=== PATIENT | female | born 1950 | race Caucasian/White ===

== ENCOUNTER → 2016-10-26 | Outpatient (CLI) | payer OTHER ==
[~2016-10-26] MED LIST: BOSW1POW4 PO; COQ10 PO; GLUCTAB7 PO; MULT-506 PO
--- NOTE | 2016-10-26 15:58 | DIAGNOSTIC IMAGING REPORT ---
PELVIS WITHOUT CONTRAST (MRI) CLINICAL HISTORY: Elevated ESR. Elevated C-reactive protein. Increased SI joint activity on bone scan COMPARISON STUDY: Bone scan dated 06/30/2016, conventional radiographic study dated 06/01/2016 FINDINGS: There are no areas of marrow replacement to indicate metastatic disease. There are degenerative changes present within the lower lumbar spine. There is very minimal marrow edema involving the left sacral wing. The findings are suspicious for a stress/insufficiency fracture. There are foci of decreased T1 and T2 signal marginating the SI joints, left greater than right., likely on a degenerative basis. This is most pronounced on the iliac side of the joint. 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 There is no significant T2 edema within the SI joints. IMPRESSION: 1. 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 2. Subtle marrow edema involving the left sacral wing. The findings are suspicious for a stress/insufficiency fracture. Electronically signed by: Vincenzo Portillo M.D. 10/26/2016 3:56 PM
== END | disposition home or self-care (01) ==
LOC: C.MRI 13:59
PROVIDERS: ATTEND Internal Medicine Rheumatology
DX: M46.1 Sacroiliitis, not elsewhere classified (principal); R70.0 Elevated erythrocyte sedimentation rate; R79.82 Elevated C-reactive protein (CRP)

== ENCOUNTER → 2016-11-09 | Outpatient (CLI) | payer OTHER ==
[2016-11-09 10:51] LABS: CHOLESTEROL/HDL RATIO 4.4
[2016-11-09 11:30] LABS: ESTIMATED AVERAGE GLUCOSE 120 mg/dl; HA1C FLAG Normal (Normal)
== END | disposition home or self-care (01) ==
LOC: C.LAB1850 09:35
PROVIDERS: ATTEND Internal Medicine
DX: E66.01 Morbid (severe) obesity due to excess calories (principal); Z13.220 Encounter for screening for lipoid disorders

== ENCOUNTER → 2017-01-17 | Outpatient (CLI) | payer OTHER ==
--- NOTE | 2017-01-17 09:13 | DIAGNOSTIC IMAGING REPORT ---
LEFT FOOT MIN 3 VIEWS CLINICAL HISTORY: Left foot pain COMPARISON: None. DISCUSSION: There is plantar calcaneal spurring and Achilles insertional spurring. There is a calcification of the posterior plantar fascia. There are no acute fractures. There are no erosive or destructive changes. IMPRESSION: 1. No acute fractures 2. Calcaneal spurring. Calcification of the posterior plantar fascia. Electronically signed by: Vincenzo Portillo M.D. 01/17/2017 9:11 AM Dictated Date/Time: 01/17/2017 9:10 AM
== END | disposition home or self-care (01) ==
LOC: C.RDSM 15:41
PROVIDERS: ATTEND Physician Assistant
DX: M79.672 Pain in left foot (principal)

== ENCOUNTER → 2017-02-28 | Outpatient (CLI) | payer OTHER ==
[2017-02-28 09:49] LABS: CALCIUM 9.2 mg/dl (8.5-10.1)
[2017-02-28 09:50] LABS: BLOOD UREA NITROGEN 11 mg/dl (7-18); BUN/CREATININE RATIO 15.9 (10-20); C-REACTIVE PROTEIN 2.65 mg/dl (0-0.29); CARBON DIOXIDE 30 mmol/L (21-32); CHLORIDE 103 mmol/L (98-107); CHOLESTEROL 173 mg/dl (0-200); GLUCOSE 109 mg/dl (70-99); POTASSIUM 3.8 mmol/L (3.5-5.1); SODIUM 142 mmol/L (136-145); TRIGLYCERIDES 157 mg/dl (0-150); VERY LOW DENSITY LIPOPROT CALC 31 mg/dl
[2017-02-28 09:55] LABS: CHOLESTEROL/HDL RATIO 4.6; HDL CHOLESTEROL 38 mg/dl; LDL CHOLESTEROL CALCULATED 104 mg/dl
[2017-02-28 10:09] LABS: ESTIMATED AVERAGE GLUCOSE 128 mg/dl; HA1C FLAG Normal (Normal)
--- NOTE | 2017-03-30 06:21 | CODING QUERY MEDICAL NECESSITY ---
SUPPORTING DIAGNOSIS NEEDED Dr. Au, A supporting diagnosis is required for the test/procedure performed on this patient in order for us to be reimbursed by the patient's insurance. Please provide a supporting diagnosis for the following test/procedure listed below next to the test name along with your signature. *If there is no additional diagnosis for this patient that would support the following test/procedure please document that below next to the test/procedure. Test(s)/Procedure(s) that require a supporting diagnosis: * [id number] GLYCATED HEMOGLOBIN DIAGNOSIS: DATE OF SERVICE: 02/28/17 Provider Signature: Date: Thank you Frank Maciel [facility] Information Management Once completed, please kindly fax back to [phone] For questions please call [phone]
== END | disposition home or self-care (01) ==
LOC: C.LAB1850 07:35
PROVIDERS: ATTEND Internal Medicine
DX: R73.03 Prediabetes (principal); R79.82 Elevated C-reactive protein (CRP); R70.0 Elevated erythrocyte sedimentation rate; E78.5 Hyperlipidemia, unspecified; E55.9 Vitamin D deficiency, unspecified; Z83.3 Family history of diabetes mellitus

== ENCOUNTER → 2017-03-28 | Outpatient (CLI) | payer OTHER ==
--- NOTE | 2017-03-28 09:09 | DIAGNOSTIC IMAGING REPORT ---
RIGHT TIBIA/FIBULA 2 VIEWS ROUTINE CLINICAL HISTORY: M25.569 Knee [id number] Right pain COMPARISON: 10/19/2016 DISCUSSION: Total right knee arthroplasty. No acute abnormality of the tibia or fibula. Moderate nonspecific pretibial soft tissue edema. No abnormal depressed reaction. The IMPRESSION: Mild soft tissue edema. No acute process. Electronically signed by: Anup Ferguson M.D. 03/28/2017 9:08 AM Dictated Date/Time: 03/28/2017 9:07 AM
--- NOTE | 2017-03-28 09:12 | DIAGNOSTIC IMAGING REPORT ---
RIGHT KNEE 3 VIEWS CLINICAL HISTORY: Right knee pain. No recent trauma. COMPARISON: Right knee radiograph October 19, 2016. FINDINGS: Alignment of the total right knee arthroplasty is anatomic. Hardware within the medial metadiaphysis of the right tibia is unchanged. There is no periprosthetic fracture or lucency. No suspicious osseous lesion is present. There is no definite joint effusion. IMPRESSION: 1. Stable postoperative findings following total right knee arthroplasty. 2. No periprosthetic fracture or lucency. Electronically signed by: Eber Frias M.D. 03/28/2017 9:11 AM Dictated Date/Time: 03/28/2017 9:09 AM
== END | disposition home or self-care (01) ==
LOC: C.RAD1850 08:38
PROVIDERS: ATTEND Physician Assistant
DX: M25.569 Pain in unspecified knee (principal)

== ENCOUNTER → 2017-08-07 | Outpatient (CLI) | payer OTHER ==
[2017-08-07 09:45] LABS: BASO % 0.6 %; BASO ABS # 0.04 K/uL (0-0.2); COMPLETE YES; EOS % 2.7 %; HEMATOCRIT 43.7 % (37-47); IG% 0.1 %; LYMPH ABS # 1.35 K/uL (1.2-3.4); MEAN CELL VOLUME 92.6 fL (80-100); MEAN CORPUSCULAR HEMOGLOBIN 31.1 pg (25-34); MEAN CORPUSCULAR HGB CONC 33.6 g/dl (32-36); MEAN PLATELET VOLUME 10.7 fL (7.4-10.4); MONO % 10.4 %; NEUT % 66.2 %; PLATELET COUNT 210 K/uL (130-400); RED BLOOD COUNT 4.72 M/uL (4.2-5.4); WHITE BLOOD COUNT 6.74 K/uL (4.8-10.8)
[2017-08-07 10:06] LABS: ALT/SGPT 25 U/L (12-78); AST/SGOT 12 U/L (15-37); BLOOD UREA NITROGEN 22 mg/dl (7-18); BUN/CREATININE RATIO 30.5 (10-20); CALCIUM 9.1 mg/dl (8.5-10.1); CARBON DIOXIDE 27 mmol/L (21-32); CHLORIDE 107 mmol/L (98-107); CREATININE 0.72 mg/dl (0.60-1.20); GLUCOSE 108 mg/dl (70-99); POTASSIUM 3.9 mmol/L (3.5-5.1); SODIUM 142 mmol/L (136-145)
[2017-08-07 10:11] LABS: ESTIMATED AVERAGE GLUCOSE 108 mg/dl; HA1C FLAG Normal (Normal)
[2017-08-07 10:17] LABS: ALB/GLOB RATIO 0.9 (0.9-2); ALKALINE PHOSPHATASE 62 U/L (45-117); CHOLESTEROL 197 mg/dl (0-200); CHOLESTEROL/HDL RATIO 4.3; HDL CHOLESTEROL 46 mg/dl; LDL CHOLESTEROL CALCULATED 133 mg/dl; TRIGLYCERIDES 92 mg/dl (0-150); VERY LOW DENSITY LIPOPROT CALC 18 mg/dl
== END | disposition home or self-care (01) ==
LOC: C.LAB1850 07:03
PROVIDERS: ATTEND Neuromusculoskeletal Medicine & OMM
DX: Z00.00 Encounter for general adult medical examination without abnormal findings (principal); E66.01 Morbid (severe) obesity due to excess calories; N95.1 Menopausal and female climacteric states; Z68.42 Body mass index [BMI] 45.0-49.9, adult

== ENCOUNTER → 2017-09-07 | Outpatient (CLI) | payer OTHER ==
--- NOTE | 2017-09-07 16:47 | DIAGNOSTIC IMAGING REPORT ---
L TOE(S) MIN 2 VIEWS HISTORY: 66 years-old Female S99.922A Injury of toe on left foot, initial encounterLeft acute left foot and toe pain status post injury COMPARISON: Left foot radiographs 01/17/2017 TECHNIQUE: 3 views of the left toes FINDINGS: Evaluation of the toes is somewhat limited secondary to mild flexion of the interphalangeal joints. Mild to moderate interphalangeal and metatarsal phalangeal degenerative changes are present. Moderate degenerative changes about the midfoot and first MTP joint are also present. There is marginal spurring involving the hallux sesamoid articulations with the first metatarsal head. Type II accessory navicular and os peroneum are noted. No acute fracture or dislocation is identified. No stress fracture. No opaque foreign body. Mild forefoot soft tissue swelling is noted. IMPRESSION: 1. Mild forefoot soft tissue swelling without acute fracture or dislocation. 2. Multifocal degenerative changes about the forefoot and midfoot as above The above report was generated using voice recognition software. It may contain grammatical, syntax or spelling errors. Electronically signed by: Wai Patrick M.D. 09/07/2017 4:45 PM Dictated Date/Time: 09/07/2017 4:43 PM
== END | disposition home or self-care (01) ==
LOC: C.RAD1850 16:28
PROVIDERS: ATTEND Neuromusculoskeletal Medicine & OMM
DX: M19.072 Primary osteoarthritis, left ankle and foot (principal); S99.922A Unspecified injury of left foot, initial encounter; X58.XXXA Exposure to other specified factors, initial encounter

== ENCOUNTER → 2017-09-08 | Outpatient (CLI) | payer OTHER ==
--- NOTE | 2017-09-08 11:59 | DIAGNOSTIC IMAGING REPORT ---
R VENOUS DOPPLER UPR EXT UNIL HISTORY: 66 years-old Female M25.511 Acute pain of right [id number] Pain with raising of acute right shoulder pain with recent fall COMPARISON: Right shoulder radiographs 08/22/2017 TECHNIQUE: Multiple real-time sonographic images of the right upper extremity deep venous structures were obtained assessing grayscale appearance, color and spectral flow FINDINGS: No there is normal flow, compressibility, augmentation and phasicity within the right upper extremity deep venous structures. IMPRESSION: No sonographic evidence of deep venous thrombosis. The above report was generated using voice recognition software. It may contain grammatical, syntax or spelling errors. Electronically signed by: Wai Patrick M.D. 09/08/2017 11:58 AM Dictated Date/Time: 09/08/2017 11:57 AM
== END | disposition home or self-care (01) ==
LOC: C.ULTRBC 10:33
PROVIDERS: ATTEND Neuromusculoskeletal Medicine & OMM
DX: M25.511 Pain in right shoulder (principal); M79.601 Pain in right arm

== ENCOUNTER → 2017-10-11 | Outpatient (CLI) | payer OTHER ==
[~2017-10-11] MED LIST changes: +ACET-1256 PO; +COEN100C7 PO; +IBUP-1050 PO; +KETO10TA PO; +OMEG10007 PO; +OXYC-57 PO; +[UNRECOGNIZED DRUG - OTHER] OPB
[2017-10-11 18:13] LABS: BLOOD UREA NITROGEN 21 mg/dl (7-18); CREATININE 0.67 mg/dl (0.60-1.20)
== END | disposition home or self-care (01) ==
LOC: C.LAB1850 17:08
PROVIDERS: ATTEND Orthopaedic Surgery
DX: M75.121 Complete rotator cuff tear or rupture of right shoulder, not specified as traumatic (principal)

== ENCOUNTER 2017-12-01 04:53 | Day surgery (SDC) | payer OTHER ==
[2017-11-16 13:26] VITALS: BMI 44.0
--- NOTE | 2017-11-16 13:56 | PAT Medication Instructions ---
Service Date Nov 16, 2017. Current Home Medication List Acetaminophen (Tylenol), 1,000 MG PO PRN Boswellia Marquise Extract (Bul (Boswellia Marquise Extract), 1 TAB PO QAM Coenzyme Q10 (Ubidecarenone) (Coq10), 100 MG PO QAM Fish Oil ([place]-3), 1 CAP PO QAM Fczoszeuwsw-Hvdfyppdvba-Ksp C- (Glucosamine Chondroitin), 1 TAB PO QAM Ibuprofen (Advil), 800 MG PO Q6H PRN for PRN Multivitamin (Multivitamin), 1 TAB PO QAM [Genteel Drops], 1 DROP OPB PRN Medication Instructions For Your Scheduled Surgery - Check with surgeon for instructions: Ibuprofen (Advil), 800 MG PO Q6H PRN for PRN - Hold the following medications 2 weeks prior to surgery: Boswellia Marquise Extract (Bul (Boswellia Marquise Extract), 1 TAB PO QAM Coenzyme Q10 (Ubidecarenone) (Coq10), 100 MG PO QAM Fish Oil ([place]-3), 1 CAP PO QAM Ohygvrpnxjp-Pkewpapyvmd-Smj C- (Glucosamine Chondroitin), 1 TAB PO QAM - Hold the following medications the morning of surgery: Multivitamin (Multivitamin), 1 TAB PO QAM - Take the following medications the morning of surgery with a sip of water: [Genteel Drops], 1 DROP OPB PRN Acetaminophen (Tylenol), 1,000 MG PO PRN (okay to take up 4 hours prior to surgery if needed) - Take the following medications as scheduled the night before surgery: [Genteel Drops], 1 DROP OPB PRN (if needed) Acetaminophen (Tylenol), 1,000 MG PO PRN (if needed) If you have any questions please call us at [phone] or [phone] or [phone]
--- NOTE | 2017-11-16 14:32 | DIAGNOSTIC IMAGING REPORT ---
TWO VIEW CHEST CLINICAL HISTORY: Preoperative examination. FINDINGS: PA and lateral chest radiographs are obtained. No prior studies are available for comparison at the time of dictation. The cardiomediastinal silhouette is unremarkable. There is atherosclerotic calcification of the thoracic aorta. There is nonspecific interstitial thickening. Airspace opacities at the left lung base likely represent atelectasis. No pleural effusion is identified. There is no pneumothorax. The skeletal structures are osteopenic. Degenerative change and scoliosis are noted in the thoracic spine. Cholecystectomy clips are seen in the right upper quadrant. 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 This was also seen by abdominal CT on 02/02/2010. IMPRESSION: Left basilar airspace opacities likely represent atelectasis. The lungs are otherwise clear. Electronically signed by: Dirk Bernardo M.D. 11/16/2017 2:31 PM Dictated Date/Time: 11/16/2017 2:30 PM
[2017-11-16 15:09] LABS: BASO % 0.7 %; BASO ABS # 0.05 K/uL (0-0.2); EOS % 2.8 %; HEMATOCRIT 43.8 % (37-47); HEMOGLOBIN 14.7 g/dL (12.0-16.0); IG# 0.01 K/uL (0.00-0.02); LYMPH % 20.1 %; LYMPH ABS # 1.45 K/uL (1.2-3.4); MEAN CELL VOLUME 93.4 fL (80-100); MEAN CORPUSCULAR HEMOGLOBIN 31.3 pg (25-34); MEAN CORPUSCULAR HGB CONC 33.6 g/dl (32-36); MEAN PLATELET VOLUME 10.7 fL (7.4-10.4); MONO % 10.8 %; MONO ABS # 0.78 K/uL (0.11-0.59); NEUT % 65.5 %; NEUT ABS # 4.73 K/uL (1.4-6.5); PLATELET COUNT 231 K/uL (130-400); RED CELL DISTRIBUTION WIDTH CV 14.1 % (11.5-14.5); RED CELL DISTRIBUTION WIDTH SD 47.9 fL (36.4-46.3); WHITE BLOOD COUNT 7.22 K/uL (4.8-10.8)
[2017-11-16 15:16] LABS: CALCIUM 9.9 mg/dl (8.5-10.1); CREATININE 0.62 mg/dl (0.60-1.20); POTASSIUM 3.9 mmol/L (3.5-5.1)
[2017-11-16 15:21] LABS: PTT PATIENT 28.6 SECONDS (21.0-31.0)
--- NOTE | 2017-11-30 09:40 | HISTORY & PHYSICAL EXAMINATION ---
DATE OF ADMISSION: 12/01/2017 CHIEF COMPLAINT: Medium-sized right rotator cuff tear. HISTORY OF PRESENT ILLNESS: Sarah is a pleasant 67-year-old female who slipped and fell at home about 3 months ago. She had significant pain in her right shoulder. She also was noticing weakness. I got a CT arthrogram of her shoulder after she failed conservative treatment and it showed a medium-sized right rotator cuff tear. She elected to proceed with a shoulder arthroscopy. PAST MEDICAL HISTORY: Denies. PAST SURGICAL HISTORY: Significant for cholecystectomy, bilateral total knee arthroplasties. ALLERGIES: PENICILLIN, TETRACYCLINE, CIPRO AND SULFA. MEDICATIONS: Include triamcinolone cream. FAMILY HISTORY: Significant for heart disease, stroke and cancer. SOCIAL HISTORY: She is , rarely drinks and does little activity. REVIEW OF SYSTEMS: She complains mostly of right shoulder pain and weakness. All other pertinent review of systems is negative. PHYSICAL EXAMINATION: GENERAL: She is awake, alert and oriented x3. She is in no apparent distress. She is very pleasant. HEENT: Pupils equal, round and reactive to light. Extraocular motion intact. Oral mucosa is pink and moist. HEART: Regular rate per radial pulse. LUNGS: Mikki symmetrically bilaterally with no audible breath sounds. ABDOMEN: Soft, nontender, nondistended. MUSCULOSKELETAL: Physical examination of the right shoulder showed about 130 degrees of forward elevation, 100 degrees of abduction. She has 4/5 muscle strength with external rotation with a lot of pain. I am unable to do a full can testing because of her pain. She has a negative belly press test. She has a lot of tenderness to palpation in the subacromial space. IMAGING: A CT arthrogram of the shoulder shows a full-thickness tear of the supraspinatus. There is no osteoarthritis. IMPRESSION: Medium-sized right rotator cuff tear. PLAN: We will proceed with a right shoulder arthroscopy to include a medium-sized rotator cuff repair. Postoperatively, she will be placed in an arm sling and discharged to home with oral pain medications.
[~2017-12-01] VITALS: Ht 160 cm; Wt 114.1 kg
[~2017-12-01 04:53] MED LIST changes: +CHECK SCOPOLAMINE PATCH PLACEMENT SCH; -COQ10 PO; -KETO10TA PO; -OXYC-57 PO
[2017-12-01 05:40] VITALS: BP 151/98; PULSE 66; TEMP 36.3; O2SAT 96; Ht 160 cm; Wt 114.1 kg
[2017-12-01] MEDS ORDERED: VANCOMYCIN INJ 1,750 MG in SODIUM CHLORIDE 0.9% 500ML 500 ML IV SCH (06:00)
[2017-12-01] MEDS ORDERED: LACTATED RINGER'S 1000ML 1,000 ML IV SCH (06:00)
[2017-12-01] MEDS ORDERED: FAMOTIDINE 20 MG TAB PO SCH (06:00)
[2017-12-01] MEDS ORDERED: SCOPOLAMINE 1.5 MG TDSY TD SCH (06:00)
[2017-12-01] MEDS ORDERED: LACTATED RINGER'S 1000ML IV SCH (06:00)
[2017-12-01] MEDS ORDERED: ACETAMINOPHEN 500 MG TAB PO SCH (06:00)
[2017-12-01] MEDS ORDERED: ROPIVACAINE 0.5% 5 MG/ML 30 ML VIAL ONE (06:30)
[2017-12-01] MEDS ORDERED: MIDAZOLAM HCL 1 MG/ML 2ML VIAL ONE (06:44)
[2017-12-01] MEDS ORDERED: FENTANYL CITRATE INJ 50 MCG/1 ML 2 ML VIAL ONE (06:45)
[2017-12-01] MEDS ORDERED: SUCCINYLCHOLINE CHLORIDE 20 MG/ML 10 ML VIAL IV ONE (06:49)
[2017-12-01] MEDS ORDERED: GLYCOPYRROLATE INJ 0.2 MG/ML VIAL ONE (06:49)
[2017-12-01] MEDS ORDERED: NEOSTIGMINE METHYLSULFATE 5 MG/5 ML SYR ONE (06:49)
[2017-12-01] MEDS ORDERED: PROPOFOL IV EMULSION 10 MG/ML 20 ML VIAL IV ONE ×2 (06:49→08:52)
[2017-12-01] MEDS ORDERED: ONDANSETRON INJ 2 MG/ML 2 ML VIAL ONE (06:49)
[2017-12-01] MEDS ORDERED: ROCURONIUM BROMIDE 10 MG/ML 5 ML VIAL IV ONE (06:49)
--- NOTE | 2017-12-01 06:52 | History & Physical Bridge Note ---
H&P Re-Evaluation Bridge Note: I have examined the patient, reviewed the History & Physical and in the interval since the performance of the History & Physical I have noted the following changes of clinical significance: No changes noted
[2017-12-01] MEDS ORDERED: BUPIVACAINE/EPINEPHRINE 0.5% MPF 1:200,000 30 ML VIAL ONE (06:56)
[2017-12-01] MEDS ORDERED: EpINEphrine HCL INJ 1 MG/ML 1ML SYRINGE ONE (06:57)
[2017-12-01] MEDS ORDERED: ONDANSETRON INJ 2 MG/ML 2 ML VIAL IV PRN ×2 (07:45→09:00)
[2017-12-01] MEDS ORDERED: EpHEDrine SULFATE INJ 50 MG/ML AMP IV PRN (07:45)
[2017-12-01] MEDS ORDERED: ATROPINE SULFATE 0.1 MG/ML 5ML SYR IV PRN (07:45)
[2017-12-01] MEDS ORDERED: FENTANYL CITRATE INJ 50 MCG/1 ML 2 ML VIAL IV PRN (07:45)
--- NOTE | 2017-12-01 08:45 | [facility] Post Operative Brief Note ---
Immediate Operative Summary Operative Date Dec 01, 2017. Pre-Operative Diagnosis Medium-sized right rotator cuff tear Post-Operative Diagnosis Medium-sized right rotator cuff tear Procedure(s) Performed Right Shoulder Arthroscopy with Medium Rotator Cuff Repair, Bicep tendinesis, Acromioplasty Surgeon Dr Stef Baez Applications Engineer Surgeon(s) Hung Rosenbaum PA-C Estimated Blood Loss 5cc Findings Consistent with Post-Op Diagnosis Specimens None as per surgeon Drains None Anesthesia Type General Regional Complication(s) none Disposition Disposition: Recovery Room / PACU
[2017-12-01] MEDS ORDERED: KETO10TA PO (08:47)
[2017-12-01] MEDS ORDERED: OXYC-57 PO (08:47)
[2017-12-01] MEDS ORDERED: METOCLOPRAMIDE HCL INJ 5 MG/ML 2 ML VIAL ONE (08:49)
[2017-12-01] MEDS ORDERED: SODIUM CHLORIDE 0.9% 1000ML 1,000 ML IV SCH (08:49)
--- NOTE | 2017-12-01 08:49 | Discharge Instructions ---
Discharge Instructions Date of Service Dec 01, 2017. Admission Reason for Admission: Right Shoulder Rotator Cuff Tear Discharge Discharge Diagnosis / Problem: SAME ABOVE Discharge Goals Goal(s): Decrease discomfort, Improve function Activity Recommendations Activity Limitations: as noted below Lifting Limitations: until after follow-up appointment Exercise/Sports Limitations: until after follow-up appointment Shower/Bathe: tomorrow . Instructions / Follow-Up Instructions / Follow-Up MEDICATIONS: * Resume previous medications unless instructed otherwise by your surgeon. * Always take pain medication on a full stomach or with food to avoid upset stomach. * Do not drink alcohol or drive while taking narcotics. * Ibuprofen or Tylenol may be taken if narcotic not needed. SPECIAL CARE INSTRUCTIONS: __ None _X_ Keep extremity elevated and iced x 48 hours; apply ice 20-30 minutes 8-10 times/day. May remove at night. __ Sling __24 hrs/day __ Remove at night _X_ Shoulder Immobilizer (MAY REMOVE AFTER 48 HOURS ONLY TO SHOWER AND FOR THERAPY) _X_ 24 hrs/day __ Remove at night _X_ Dressing __ Maintain until seen in office, may shower with plastic over site _X_ Remove dressings in 24-48 hours and then may shower _X_ Cover incisions with band-aids after showering __ Do not remove steri-strips Call physician if chills or temperature rises above 102 degrees or pain unrelieved by prescribed pain medications at . . Current Hospital Diet Patient's current hospital diet: Discharge Diet Recommended Diet: Regular Diet Fluid Restriction: None Procedures Procedures Performed: Right Shoulder Arthroscopy with Medium Rotator Cuff Repair, Bicep tendinesis, Acromioplasty Pending Studies Studies pending at discharge: no Work Instructions Return To Work: after follow-up Lifting Limitations: NO LIFTING WITH RIGHT ARM Medical Emergencies . Who to Call and When: Medical Emergencies: If at any time you feel your situation is an emergency, please call 911 immediately. . Non-Emergent Contact Non-Emergency issues call your: Primary Care Provider Call Non-Emergent contact if: you have a fever, temperature is above 101.5 . "Provider Documentation" section prepared by Jose Rosenbaum. . VTE Core Measure Inpt VTE Proph given/why not?: Treatment not indicated
[2017-12-01] MEDS ORDERED: OXYCODONE/ACETAMINOPHEN 5-325 TAB PO PRN ×2 (09:00)
--- NOTE | 2017-12-01 09:08 | OPERATIVE REPORT ---
DATE OF OPERATION: 12/01/2017 PREOPERATIVE DIAGNOSIS: Medium sized rotator cuff tear of the right shoulder. POSTOPERATIVE DIAGNOSIS: Same. PROCEDURE: Right shoulder diagnostic arthroscopy with limited debridement, acromioplasty, medium size rotator cuff repair and arthroscopic biceps tenodesis. SURGEON: Dr. Stef Baez. PIGS FEET FINISHER: Hung Rosenbaum PA-C, whose assistance was necessary for positioning the arm and helping with instrumentation and closure. ANESTHESIA: General with a right interscalene nerve block. COMPLICATIONS: None. CONDITION: Stable to PACU. INDICATIONS: Sarah is a pleasant 67-year-old female who presented to my office with complaints of right shoulder pain. CT arthrogram and clinical examination were diagnostic for medium sized rotator cuff tear. After failing conservative treatment, she elected to undergo arthroscopy. DESCRIPTION OF PROCEDURE: On 12/01/2017, she arrived at [facility] for the above procedure. She was seen in the preoperative holding area and the operative extremity was identified and signed. She was given a preoperative antibiotic and a right interscalene nerve block. She was taken back to the operating room, laid on the table in supine position and put under general anesthesia. She was then put into the beachchair position. The right shoulder was prepped and draped in sterile fashion. Time-out was done and the patient and operative extremity was properly identified. A scope was introduced in the posterior portal. Diagnostic arthroscopy showed no cartilage damage to the humeral head or the glenoid. There was a little fraying of the anterior labrum. There was significant fraying of the long head of the biceps tendon. The subscapularis was intact. There was a tear of the entire supraspinatus. The infraspinatus and teres minor were intact. An anterior portal was made, a shaver was used to do a limited debridement of the intraarticular structures and the biceps tendon was arthroscopically tenotomized for later tenodesis. The scope was then put into the subacromial space. A lateral portal was made. A shaver was used to do a complete subacromial and subdeltoid bursectomy. An ablator was used to tease the coracoacromial ligament off the undersurface of the acromion and a 5-0 chen was used to complete an acromioplasty of a Bigliani type 2 acromion. A shaver was used to remove any excess debris and attention was turned to the rotator cuff. An additional anterolateral portal was made and Hanh cannulas were placed in each of the lateral portals. It was a medium size crescent-shaped rotator cuff tear. The greater tuberosity was prepared with a ring curette and a microfracture. The rotator cuff was fixed with an Arthrex SpeedBridge configuration using 4.75 mm BioComposite SwiveLock suture anchors and FiberTapes. This gave a nice knotless repair. Multiple pictures were taken. The long head of the biceps tendon was also tagged with a fiber link and incorporated into the anterior medial anchor to complete an arthroscopic biceps tenodesis. The scope was then placed back into the glenohumeral joint and the articular margin of the rotator cuff had been restored. Pictures were taken. Arthroscopic instruments were removed from the shoulder. Portal sites were closed with 3-0 nylon. She was then placed in a soft dressing and an abduction arm sling. She was then extubated, transferred to a litter and taken to the postanesthesia care unit in stable condition. She tolerated the procedure well. I attest to the content of the Intraoperative Record and any orders documented therein. Any exception s are noted below.
--- NOTE | 2017-12-01 09:29 | Anesthesiology Progress Note ---
Anesthesia Post Op Note Date & Time Dec 01, 2017 at 09:29 Vital Signs Pain Intensity: 0 Vital Signs Past 12 Hours Date Time Temp Pulse Resp B/P (MAP) Pulse Ox O2 Delivery O2 Flow Rate FiO2 12/01/17 09:25 36.4 71 24 123/74 92 Room Air 12/01/17 09:15 85 26 117/76 91 Room Air 12/01/17 09:05 73 20 127/69 95 Oxymask 10 12/01/17 08:55 80 20 140/69 96 Oxymask 10 12/01/17 08:45 36.2 89 14 137/88 95 Oxymask 10 12/01/17 05:40 36.3 66 16 151/98 (115) 96 Room Air Notes Mental Status: alert / awake / arousable, participated in evaluation Pt Amnestic to Procedure: Yes Nausea / Vomiting: adequately controlled Pain: adequately controlled Airway Patency, RR, SpO2: stable & adequate BP & HR: stable & adequate Hydration State: stable & adequate Anesthetic Complications: no major complications apparent
[2017-12-01 10:30] VITALS: BP 122/61; PULSE 74; TEMP 36.1; O2SAT 98
== END 2017-12-01 10:32 | disposition home or self-care (01) ==
LOC: C.ACU 04:53
PROVIDERS: ATTEND Orthopaedic Surgery
DX: S46.011A Strain of muscle(s) and tendon(s) of the rotator cuff of right shoulder, initial encounter (principal); W01.0XXA Fall on same level from slipping, tripping and stumbling without subsequent striking against object, initial encounter; Y92.009 Unspecified place in unspecified non-institutional (private) residence as the place of occurrence of the external cause; E66.01 Morbid (severe) obesity due to excess calories; Z68.41 Body mass index [BMI] 40.0-44.9, adult; Z88.0 Allergy status to penicillin; Z88.1 Allergy status to other antibiotic agents; Z88.2 Allergy status to sulfonamides; Z88.8 Allergy status to other drugs, medicaments and biological substances; Z90.49 Acquired absence of other specified parts of digestive tract; Z96.653 Presence of artificial knee joint, bilateral; Z82.49 Family history of ischemic heart disease and other diseases of the circulatory system; Z82.3 Family history of stroke; Z80.9 Family history of malignant neoplasm, unspecified

== ENCOUNTER → 2018-01-29 | Outpatient (CLI) | payer OTHER ==
[~2018-01-29] MED LIST changes: -CHECK SCOPOLAMINE PATCH PLACEMENT SCH; +KETO10TA PO; +OXYC-57 PO
--- NOTE | 2018-01-29 18:08 | DIAGNOSTIC IMAGING REPORT ---
R UPPER EXT JOINT WITHOUT CLINICAL HISTORY: 67 years-old Female presenting with MASS UPPER ARM. TECHNIQUE: Multisequence, multiplanar MR imaging of the right shoulder was performed without the use of intravenous contrast. IV contrast: None. COMPARISON: Plain radiographs of the right humerus from 01/23/2018. FINDINGS: Localizer images: Unremarkable. Bone marrow: Multiple anchor fixation in the humeral head likely from prior rotator cuff repair. Bony edema in the humeral head. Bony edema also noted associated with degenerative change in the acromioclavicular joint. Articular cartilage: The suggestion of diffuse cartilage thinning of the humeral head and to a lesser extent the glenoid fossa. Labrum: Glenoid labrum grossly intact allowing for suboptimal field of view. This limits diagnostic since activity. Biceps and triceps tendons: The long head of the biceps tendon appears discontinuous though the tendon remains within the intertubercular groove. This suggests complete tear. Short head of the biceps tendon intact. Long head of the triceps tendon not well visualized. Rotator cuff: Allowing for suboptimal field of view and imaging plane, postsurgical changes of the supraspinatus tendon appear intact. Similarly, postsurgical changes of the infraspinatus tendon, which may demonstrate a full-thickness tear along the posterior fibers immediately anterior to the surgical fixation (series 9 image 16). Teres minor tendon intact. Fluid signal intensity within the subscapularis suggest partial tear though the transverse ligament portion of the subscapularis remains intact. Acromioclavicular joint: Hypertrophic degenerative changes of the acromioclavicular joint. Shoulder joint effusion: Trace joint fluid. Substantial distention of the subacromial subdeltoid bursa. Muscle: Moderate fatty atrophy of the supraspinatus and infraspinatus. Mild fatty atrophy of the subscapularis. Superficial soft tissue: No subcutaneous edema. IMPRESSION: 1. Postsurgical changes of prior rotator cuff repair. 2. Full-thickness tear suspected of the infraspinatus immediately anterior to the surgical fixation. 3. Partial tear of the subscapularis suspected. 4. Significant distention of the subacromial subdeltoid bursa could relate to full-thickness rotator cuff tear or indicate bursitis. 5. Complete tear of the long head of the biceps tendon suspected versus postsurgical change. 6. Moderate fatty atrophy of the meniscus and infraspinatus muscle bellies. 7. Degenerative changes of the acromioclavicular joints. Electronically signed by: Kushal Lopez M.D. 01/29/2018 6:07 PM Dictated Date/Time: 01/29/2018 5:55 PM
== END | disposition home or self-care (01) ==
LOC: C.MRIBC 16:04
PROVIDERS: ATTEND Orthopaedic Surgery
DX: R22.31 Localized swelling, mass and lump, right upper limb (principal)